=== PATIENT | male | born 1985 | race Caucasian/White ===

== ENCOUNTER 2016-08-17 23:37 | Emergency (ER) | payer SELFPAY ==
[2016-08-18] MEDS ORDERED: CYCLOBENZAPRINE 10 MG TAB ONE (00:23)
[2016-08-18] MEDS ORDERED: TRAMADOL 50 MG TAB ONE (00:23)
[2016-08-18] MEDS ORDERED: DILAUDID 1 MG/ML AMP ONE (02:54)
== END 2016-08-18 03:40 | disposition home or self-care (01) ==
LOC: ER 23:37
DX: S22.060A Wedge compression fracture of T7-T8 vertebra, initial encounter for closed fracture (principal); S22.070A Wedge compression fracture of T9-T10 vertebra, initial encounter for closed fracture; W11.XXXA Fall on and from ladder, initial encounter; Y92.007 Garden or yard of unspecified non-institutional (private) residence as the place of occurrence of the external cause; F17.210 Nicotine dependence, cigarettes, uncomplicated
CPT/HCPCS: 72072; 72100; 72128; 96372